=== PATIENT | male | born 1950 | race Caucasian/White ===

== ENCOUNTER 2017-12-12 14:28 | Emergency (ER) | payer MEDICARE ==
[~2017-12-12] VITALS: Ht 190.5 cm; Wt 132.7 kg
[2017-12-12 14:30] VITALS: BP 137/72; PULSE 67; RESP 18; TEMP 97.6; O2SAT 93
[2017-12-12] MEDS ORDERED: APIX5TAB PO (14:46)
[2017-12-12 15:03] LABS: BILIRUBIN, URINE NEG (NEG); BLOOD, URINE SMALL (NEG); GLUCOSE,URINE NEG (NEG); KETONE, URINE TRACE mg/dL (NEG); NITRITE,URINE NEG (NEG); URINE LEUKOCYTE ESTERASE SMALL (NEG)
[2017-12-12 15:09] LABS: URINE COLOR YELLOW (YELLW/STRAW)
[2017-12-12 15:12] LABS: BACTERIA, URINE FEW /hpf; WHITE BLOOD CELL CLUMPS FEW
[2017-12-12] MEDS ORDERED: TETANUS/DIPHTHERIA TOXOID ADULT 0.5 ML VIAL IM ONE (15:30)
--- NOTE | 2017-12-12 15:39 | PD ---
HPI Chief Complaint: Skin Problem Time Seen by Provider: 15:15 Travel History International Travel<30 days: No Contact w/Intl Traveler<30days: No Traveled to known affect area: No History of Present Illness HPI Patient comes to the emergency department complaining of puncture [place] that [place] Patient reports that he poked by a crab trap. Patient reports his last tetanus shot was 10 years ago. Patient concerned might be a infection in the wound. Patient denies doing anything for this other than cleaning it with alcohol. Patient also has concerns for possible urinary tract infection. Patient reports that he is urged to go but only has a little bit dribble out. Patient reports he has similar happen to him in the past when he had to have his prostate "drilled out ". Patient denies abdominal pain, back pain, fevers, or dysuria. PFSH Past Medical History Atrial Fibrillation: Yes Cardiovascular Problems: Yes Tetanus Vaccination: > 5 Years Influenza Vaccination: Yes Past Surgical History Tonsillectomy: Yes Social History Alcohol Use: Yes (DAILY) Tobacco Use: No Substance Use: No Allergies-Medications (Allergen,Severity, Reaction): Coded Allergies: No Known Allergies (Unverified , 12/12/17) Reported Meds & Prescriptions Reported Meds & Active Scripts Active [place] (Hydrocodone-Acetaminophen) 5 Mg-325 Mg Tab 1 Tab PO Q6H PRN Flomax (Tamsulosin HCl) 0.4 Mg Cap 0.4 Mg PO HS Doxycycline Hyclate 100 Mg Cap 100 Mg PO BID Cipro (Ciprofloxacin HCl) 250 Mg Tab 250 Mg PO BID 7 Days Reported Eliquis (Apixaban) 5 Mg Tab 10 Mg PO BID Review of Systems Except as stated in HPI: all other systems reviewed are Neg Physical Exam Narrative GENERAL: Well-developed, overly nourished, in no acute distress, and non-ill appearing. SKIN: Small puncture wound noted over anterior right teague. No obvious foreign body noted. He is mildly erythematous. Tender to palpation. Without crepitus. There is scant discharge. HEAD: Atraumatic. Normocephalic. EYES: Pupils equal and round. EOMI. No scleral icterus. No injection or drainage. ENT: No nasal bleeding or discharge. Mucous membranes pink and moist. NECK: Trachea midline. Supple. No nuclear rigidity. RESPIRATORY: No accessory muscle use. No respiratory distress. GASTROINTESTINAL: Abdomen soft, non-tender, nondistended, and no guarding. Hepatic and splenic margins not palpable. Normal bowel sounds x4. No pulsatile mass. No CVA tenderness MUSCULOSKELETAL: No obvious deformities. No clubbing. No cyanosis. No edema. Full range of motion. NEUROLOGICAL: Awake and alert. No obvious cranial nerve deficits. Motor grossly within normal limits. Normal speech. PSYCHIATRIC: Appropriate mood and affect; insight and judgment normal. Data Data Last Documented VS Vital Signs Date Time Temp Pulse Resp B/P (MAP) Pulse Ox O2 Delivery O2 Flow Rate FiO2 12/12/17 14:30 97.6 67 18 137/72 (93) 93 Orders Orders Urinalysis - C+S If Indicated (12/12/17 14:37) Urine Culture (12/12/17 14:40) Wound Care (12/12/17 15:19) Tetanus/Diphtheria Tox Adult (Tetanus/Di (12/12/17 15:30) Tibia/Fibula (Ap/Lat) (12/12/17 ) Ct Abd/Pel W/O Iv Contrast (12/12/17 15:37) Ed Discharge Order (12/12/17 17:03) Labs Laboratory Tests Test 12/12/17 14:40 Urine Collection Type CLEAN CATCH Urine Color YELLOW Urine Turbidity SLIGHTY CLOUDY Urine pH 6.0 Urine Specific [place] 1.026 Urine Protein NEG mg/dL Urine Glucose (UA) NEG mg/dL Urine Ketones TRACE mg/dL Urine Occult Blood SMALL Urine Nitrite NEG Urine Bilirubin NEG Urine Leukocyte Esterase SMALL Urine RBC 4-9 /hpf Urine WBC 25-49 /hpf Urine WBC Clumps FEW Urine Bacteria FEW /hpf Microscopic Urinalysis Comment CULTURE INDICATED MDM Medical Decision Making Medical Screen Exam Complete: Yes Emergency Medical Condition: Yes Interpretation(s) Last Impressions Abdomen/Pelvis CT 12/12/17 1537 Signed Impressions: Service Date/Time: Tuesday, December 12, 2017 16:11 - CONCLUSION: 1. 6 mm calcified stone lodged at the right ureterovesical junction. 2. Both ureters are normal in dimension. 3. Symmetrically prominent renal pelvis with multiple cystic areas suggesting either bilateral hydronephrosis for bilateral parapelvic cysts. 4. Small symmetric bilateral fat-containing inguinal hernias. Octaviano Rand MD Tibia/Fibula X-Ray 12/12/17 0000 Signed Impressions: Service Date/Time: Tuesday, December 12, 2017 15:47 - CONCLUSION: 1. Soft tissue swelling anteriorly with possible tiny foreign body. Kwaku Travis MD Differential Diagnosis Puncture wound, laceration, foreign body, UTI, renal calculi, prostatitis Narrative Course The patient suffered a puncture wound to the extremity. There was no evidence to suggest foreign bodies. Visual and tactile exams were unremarkable without evidence of foreign body at this time. There was no evidence of neurovascular injury. The patient had a normal distal vascular exam, and had full normal motor and sensory exams. There was also no evidence or tendon injury, with normal distal full range of motions, flexion, extension, abduction, adduction and opponens. There was no evidence of local joint space involvement at this time. The patient was irrigated with copious sterile normal saline. Please see procedure note. The patient was given signs and symptom warnings for infection, such as increasing pain, redness, swelling, associated heat, pus or fever. The patient was warned of possible unseen foreign body as well as a questionable foreign body noted on x-ray and instructed to return immediately if signs or symptoms develop. The patient was given instructions for timely follow up. The patient agreed with plan of care. The patient presented with history, exam and evaluation consistent with kidney stone. CT scan showed evidence of stone without obstruction , hydronephrosis or hydroureter. There was evidence to suggest infection. The patients pain was well controlled and the patient is tolerating fluids. There was no clinical evidence to support appendicitis, bowel obstruction, cholecystitis/ cholelithiasis, pancreatitis, perforation of gastric ulcer, colitis, diverticulitis, bacterial peritonitis, obstruction, volvulus, hernial incarceration or strangulation at this time. There was no evidence to support vascular pathology such as AAA, mesenteric ischemia. There was also no clinical evidence by history, exam or risk factors to suggest atypical presentation of cardiac disease such as ACS, AMI or atypical angina. Diagnosis, plan of care, management and acute outpatient follow up with Urology was discussed with the patient. Warnings to return immediately, such as worsening pain not controlled by pain medications, vomiting, fever or chills or worsening of condition were discussed. The patient agreed with plan. Patient in no obvious distress upon re-evaluation. All pertinent laboratory/ Radiology result(s) discussed with patient/family. Discussed patient with Dr. Mckinney prior to discharge, who is in agreement with plan of care and disposition. Patient was asked if they wanted to speak to my attending, which the patient did not wish to do at this time. Any questions/concerns in reference to patient diagnosis/condition discussed and clarified prior to patient's discharge. Reinforced sheer importance of close follow up with patient 's primary physician or primary care clinic and urologist. Instructed patient to return to ED immediately, if symptoms return/worsen. Patient showed understanding of above instructions. Further instructions and recommendations were detailed in discharge paperwork. Patient ambulated without difficulty out of ED at discharge. Procedures Procedure Narrative Verbal consent was obtained. Wound was clean irrigated using copious amounts of normal saline. Foreign body noted on x-ray was not found. Patient was made aware of this. Patient was given signs to watch out for infection. Patient verbalized understanding. There is no complications. Patient tolerated procedure well. Physician Communication Physician Communication [id number] Simms who recommends antibiotic, Flomax, and outpatient follow-up. Diagnosis Primary Impression: Kidney stone Additional Impressions: UTI (urinary tract infection) Qualified Codes: N39.0 - Urinary tract infection, site not specified; R31.9 - Hematuria, unspecified Puncture wound Referrals: Jonathan Simms MD [facility] Patient Instructions: General Instructions, Kidney Stones (ED), Puncture Wound (ED), Urinary Tract Infection in Men (ED) Additional Instructions: Follow-up with your primary care physician next week for reevaluation of your wound. Follow-up with urology call tomorrow for an appointment regarding kidney stone.. Take all medication as prescribed. Keep wound dry and clean as possible using soap and water. Do not soak or submerge wound. Return to the emergency department if symptoms get worse. Med/Other Pt SpecificInfo: Prescription(s) given Scripts Hydrocodone-Acetaminophen ([place]) 5 Mg-325 Mg Tab 1 TAB PO Q6H Y for PAIN, #9 TAB 0 Refills Prov: Khoa Mckinney MD 12/12/17 Tamsulosin (Flomax) 0.4 Mg Cap 0.4 MG PO HS for Manage Prostate Problems, #10 CAP 0 Refills Prov: Khoa Mckinney MD 12/12/17 Doxycycline Hyclate (Doxycycline Hyclate) 100 Mg Cap 100 MG PO BID for Infection, #20 CAP 0 Refills Prov: Khoa Mckinney MD 12/12/17 Ciprofloxacin (Cipro) 250 Mg Tab 250 MG PO BID for Infection for 7 Days, #14 TAB 0 Refills Prov: Khoa Mckinney MD 12/12/17 Disposition: 01 DISCHARGE HOME Condition: Stable Chan Guy Dec 12, 2017 15:39
--- NOTE | 2017-12-12 16:36 | RADRPT ---
EXAM DATE/TIME: 12/12/2017 15:47 [facility] COMPARISON: No previous studies available for comparison. INDICATIONS : Right lower leg puncture wound from an oyster. MEDICAL HISTORY : None. SURGICAL HISTORY : None. ENCOUNTER: Initial ACUITY: 4 - 6 days PAIN SCORE: 3/10 LOCATION: Right anterior lower leg. FINDINGS: There is no evidence of acute fracture. Bony mineralization is normal. Prominent vascular calcificati on is present. A posterior calcaneal spur is present. There is soft tissue swelling anteriorly with e ither a phlebolith or possible foreign body in the soft tissues seen on the lateral view. No gas is p resent. CONCLUSION: 1. Soft tissue swelling anteriorly with possible tiny foreign body. Kwaku Travis MD on December 12, 2017 at 16:30 Board Certified Radiologist. This report was verified electronically.
--- NOTE | 2017-12-12 16:39 | RADRPT ---
EXAM DATE/TIME: 12/12/2017 16:11 [facility] COMPARISON: No previous studies available for comparison. INDICATIONS : Dysuria. Evaluate for renal stone. ORAL CONTRAST: No oral contrast ingested. RADIATION DOSE: 24.06 CTDIvol (mGy) MEDICAL HISTORY : None SURGICAL HISTORY : None. ENCOUNTER: Initial ACUITY: 2 days PAIN SCALE: 4/10 LOCATION: pelvis TECHNIQUE: Renal colic protocol. Volumetric scanning of the abdomen and pelvis was performed. Using automated exposure control and adjustment of the mA and/or kV according to patient size, radiation dose was kep t as low as reasonably achievable to obtain optimal diagnostic quality images. DICOM format image da ta is available electronically for review and comparison. FINDINGS: Right side: Dilation of the collecting system versus multiple parapelvic cysts. No calcified stones in the colle cting system. Normal dimension right ureter, but there is a 6 mm calcified stone at the right ureter ovesical junction. Left side: Dilation of the collecting system versus multiple parapelvic cysts. No calcified stones in the colle cting system. Normal dimension the left ureter. No calcified stones in the left ureter. Bladder: Smooth margins, nondistended. No calcifications within the lumen. Other: Small fat-containing inguinal hernias on both sides, symmetric. No dilated loops of small or large b owel. CONCLUSION: 1. 6 mm calcified stone lodged at the right ureterovesical junction. 2. Both ureters are normal in dimension. 3. Symmetrically prominent renal pelvis with multiple cystic areas suggesting either bilateral hydron ephrosis for bilateral parapelvic cysts. 4. Small symmetric bilateral fat-containing inguinal hernias. Octaviano Rand MD on December 12, 2017 at 16:33 Board Certified Radiologist. This report was verified electronically.
[2017-12-12] MEDS ORDERED: NORC5TAB PO (17:01)
[2017-12-12] MEDS ORDERED: DOXY100C PO (17:01)
[2017-12-12] MEDS ORDERED: CIPR250T52 PO (17:01)
[2017-12-12] MEDS ORDERED: TAMS5CAP PO (17:01)
== END 2017-12-12 17:20 | disposition home or self-care (01) ==
LOC: PHEFT 14:28
DX: N20.0 Calculus of kidney (principal); N39.0 Urinary tract infection, site not specified; R31.9 Hematuria, unspecified; S81.831A Puncture wound without foreign body, right lower leg, initial encounter; I48.91 Unspecified atrial fibrillation; Z23 Encounter for immunization; W26.8XXA Contact with other sharp object(s), not elsewhere classified, initial encounter; Y93.89 Activity, other specified
CPT/HCPCS: 73590; 74176; 81001; 86403; 87070; 87086; 87205; 90471; 90714